=== PATIENT | female | born 1945 | race Caucasian/White ===

== ENCOUNTER → 2019-09-10 | Outpatient (CLI) | payer MEDICARE, OTHER ==
[2016-06-05 15:15] VITALS: BP 120/66
[~2019-09-10] MED LIST: ALBU2.5V8 IH; CALC1TAB PO; DULO30CA2 PO; FLUT16SP2 NS; FLUT1DIS3 IH; KRIL500C PO; LAMO100T5 PO; LAMO150T4 PO; LEVO1CAP PO; MIRT15TA PO; MULT-18 PO; POTA20TA12 PO; PROP1DRO6 OP; TRAM50TA PO; VALS1TAB14 PO
[2019-09-10 11:49] LABS: BASO # 0.1 x10^3/uL (0.0-0.2); BASO % 1 % (0-3); EOS # 0.9 x10^3/uL (0.0-0.7); EOS % 19 % (0-3); HEMATOCRIT 37.6 % (36.0-47.0); HEMOGLOBIN 12.8 g/dL (12.0-15.5); LYMPH # 0.8 x10^3/uL (1.0-4.8); LYMPH % 19 % (24-48); MEAN CORPUSCULAR HEMOGLOBIN 30 pg (25-35); MEAN CORPUSCULAR HGB CONC 34 g/dL (31-37); MEAN CORPUSCULAR VOLUME 87 fL (79-100); MONO # 0.3 x10^3/uL (0.0-1.1); MONO % 7 % (0-9); NEUT # 2.5 x10^3uL (1.8-7.7); NEUT % 54 % (31-73); PLATELET COUNT 349 x10^3/uL (140-400); RED BLOOD COUNT 4.32 x10^6/uL (3.50-5.40); RED CELL DISTRIBUTION WIDTH 13.4 % (11.5-14.5); WHITE BLOOD COUNT 4.6 x10^3/uL (4.0-11.0)
[2019-09-10 12:10] LABS: ALBUMIN 3.6 g/dL (3.4-5.0); CALCIUM 9.3 mg/dL (8.5-10.1); CREATININE 1.2 mg/dL (0.6-1.0); POTASSIUM 3.2 mmol/L (3.5-5.1); TOTAL BILIRUBIN 0.6 mg/dL (0.2-1.0); TOTAL PROTEIN 7.2 g/dL (6.4-8.2)
[2019-09-11 00:07] LABS: HEMOGLOBIN A1C 5.4 % (4.8-5.6)
== END | disposition home or self-care (01) ==
LOC: LAB 10:00
PROVIDERS: ATTEND Family Medicine
DX: I10 Essential (primary) hypertension (principal); R73.9 Hyperglycemia, unspecified; M81.0 Age-related osteoporosis without current pathological fracture
CPT/HCPCS: 36415; 80053; 82306; 83036; 85025

== ENCOUNTER 2020-09-29 21:05 | Emergency (ER) | payer MEDICARE, OTHER ==
[~2020-09-29] VITALS: Ht 162.6 cm; Wt 53.3 kg
[~2020-09-29 21:05] MED LIST changes: +MIRT-37 PO; -MIRT15TA PO
--- NOTE | 2020-09-29 21:27 | PHYS DOC ---
Past History Past Medical History: No Pertinent History, Asthma, Depression, Hypertension, Other Past Surgical History: Tonsillectomy, Other Alcohol Use: None Drug Use: None Adult General Chief Complaint Chief Complaint: HYPERTENSION HPI HPI This is a pleasant 75-year-old female with a history of hypertension, anxiety, asthma presented to the emergency department complaining of high blood pressure. Patient states that she has been diagnosed with hypertension for some time and has been on valsartan 80 mg p.o. daily. This has been increased to 80 mg twice a day. Patient states that she checked her blood pressure and it was 220/90. Her elevated blood pressure associated with temporal headache, dizziness and lightheadedness. She denies any visual changes, blurry vision, diplopia, chest pain, shortness of breath, leg swelling. She contacted her primary care provider who recommend patient take double dose of valsartan. Therefore this morning she had taken valsartan total 320 mg 4 tablets of 80 mg valsartan. Patient checked her blood pressure again this evening and it is high. Therefore she came to the ER for evaluation. Patient denies any other symptoms including abdominal pain, nausea, vomiting or bowel or bladder problem. She denies any sick contacts or recent travel. She denies any recent hospitalization or antibiotic usage. Review of Systems Review of Systems All other systems were reviewed and found to be within normal limits, except as documented in this note. Allergies Allergies Allergies Coded Allergies Type Severity Reaction Last Updated Verified Sulfa (Sulfonamide Antibiotics) Allergy Unknown 09/29/20 Yes acetaminophen Allergy Unknown 05/03/14 Yes codeine Allergy Unknown 05/03/14 Yes oxycodone Allergy Unknown 05/03/14 Yes Physical Exam Physical Exam Constitutional: Well developed, well nourished, no acute distress, non-toxic appearance. [] HENT: Normocephalic, atraumatic, bilateral external ears normal, oropharynx moist, no oral exudates, nose normal. [] Eyes: PERRLA, EOMI, conjunctiva normal, no discharge. [] Neck: Normal range of motion, no tenderness, supple, no stridor. [] Cardiovascular:Heart rate regular rhythm, no murmur [] Lungs & Thorax: Bilateral breath sounds clear to auscultation [] Abdomen: Bowel sounds normal, soft, no tenderness, no masses, no pulsatile masses. [] Skin: Warm, dry, no erythema, no rash. [] Back: No tenderness, no CVA tenderness. [] Extremities: No tenderness, no cyanosis, no clubbing, ROM intact, no edema. [] Neurologic: Alert and oriented X 3, normal motor function, normal sensory function, no focal deficits noted. [] Psychologic: Affect normal, judgement normal, mood normal. [] EKG EKG [] Radiology/Procedures Radiology/Procedures [] Heart Score C/O Chest Pain: N/A Risk Factors: Risk Factors: DM, Current or recent (<one month) smoker, HTN, HLP, family history of CAD, obesity. Risk Scores: Risk Factors: DM, Current or recent (<one month) smoker, HTN, HLP, family history of CAD, obesity. Course & Med Decision Making Course & Med Decision Making Patient was examined and evaluated immediately upon arrival to the ER. Patient was placed on monitor. Her vital signs stable other than elevated blood pres sure 224/84. This was repeated manually. About the same. No change. Patient was initiated with hydralazine 10 mg IV x1. This lowered her blood pressure to 170s. Patient was monitored closely. Blood work reviewed. No acute findings. No endorgan damage. She might be likely dehydrated. She was closely monitored for blood pressure in the ER. Her blood pressure elevated again toward the 180s to 200s systolic. She was given labetalol 20 mg IV x1. This lowered her blood pressure to 170s. It was felt the patient could take her home dose valsartan. She was given losartan 50 mg p.o. x1. This really improved her blood pressure to 150s. It was felt that patient is responding to her home dose with assistance of IV antihypertensives. She did not appear to be in toxic state. She is alert and oriented x4. She is conversing with her family members. Patient was going to be admitted to the hospital. She wants to go home. Her blood pressure is manageable with home medication. I advised patient to take th e losartan 80 mg 2 tablets by mouth in a.m. and valsartan 80 mg x 2 tablets by mouth in p.m. In addition to that she is to monitor her blood pressure closely and create a log sheet by checking blood pressure twice a day and take the blood pressure to her primary care provider. She was also given prescription for amlodipine 5 mg p.o. as needed for systolic blood pressure greater than 160. It was clear that patient will likely benefit from another agent if her current maximum dose of the losartan 160 mg twice a day is inadequate. She was discharged in satisfactory and stable condition with return precautions. Laboratory Tests Test 09/29/20 21:55 White Blood Count 6.9 x10^3/uL Red Blood Count 4.32 x10^6/uL Hemoglobin 12.4 g/dL Hematocrit 37.2 % Mean Corpuscular Volume 86 fL Mean Corpuscular Hemoglobin 29 pg Mean Corpuscular Hemoglobin Concent 33 g/dL Red Cell Distribution Width 13.6 % Platelet Count 343 x10^3/uL Neutrophils (%) (Auto) 52 % Lymphocytes (%) (Auto) 28 % Monocytes (%) (Auto) 7 % Eosinophils (%) (Auto) 12 % Basophils (%) (Auto) 1 % Neutrophils # (Auto) 3.6 x10^3uL Lymphocytes # (Auto) 1.9 x10^3/uL Monocytes # (Auto) 0.5 x10^3/uL Eosinophils # (Auto) 0.8 x10^3/uL Basophils # (Auto) 0.1 x10^3/uL Urine Collection Type Unknown Urine Color Yellow Urine Clarity Clear Urine pH 7.5 Urine Specific Salters 1.015 Urine Protein Neg Urine Glucose (UA) Neg mg/dL Urine Ketones (Stick) Neg mg/dL Urine Blood Neg Urine Nitrite Neg Urine Bilirubin Neg Urine Urobilinogen Dipstick 0.2 mg/dL Urine Leukocyte Esterase Neg Urine RBC 0 /HPF Urine WBC Rare /HPF Urine Squamous Epithelial Cells Occ /LPF Urine Bacteria 0 /HPF Sodium Level 144 mmol/L Potassium Level 3.6 mmol/L Chloride Level 105 mmol/L Carbon Dioxide Level 32 mmol/L Anion Gap 7 Blood Urea Nitrogen 20 mg/dL Creatinine 1.1 mg/dL Estimated GFR (Cockcroft-Gault) 48.6 BUN/Creatinine Ratio 18 Glucose Level 92 mg/dL Calcium Level 9.0 mg/dL Magnesium Level 2.5 mg/dL Total Bilirubin 0.5 mg/dL Aspartate Amino Transf (AST/SGOT) 25 U/L Alanine Aminotransferase (ALT/SGPT) 29 U/L Alkaline Phosphatase 93 U/L Troponin I Quantitative < 0.017 ng/mL C-Reactive Protein 4.1 mg/L RU-[id number]-Type Natriuretic Peptide 357 pg/mL Total Protein 7.1 g/dL Albumin 3.5 g/dL Albumin/Globulin Ratio 1.0 Current Medications Medications (Trade) Dose Ordered Sig/Teo Route PRN Reason Start Time Stop Time Status Last Admin Dose Admin Hydralazine HCl (Apresoline) 20 mg STK-MED ONCE .ROUTE 09/29/20 23:18 09/29/20 23:19 DC Hydralazine HCl (Apresoline) 10 mg 1X ONCE IV 09/29/20 23:30 09/29/20 23:31 DC 09/29/20 23:28 Labetalol HCl (Normodyne) 20 mg 1X ONCE IVP 09/30/20 00:30 09/30/20 00:32 DC 09/30/20 00:44 Losartan Potassium (Cozaar) 50 mg DAILY PO 09/30/20 01:03 09/30/20 03:03 DC 09/30/20 01:36 REASON: HTN PROCEDURE: CHEST PA & LATERAL XR CHEST 2V History: Reason: HTN / Spl. Instructions: / History: Comparison: May 28, 2016 Findings: Hyperinflation. No consolidation or pleural effusion. Normal heart size. No pneumothorax. Chronic upper thoracic compression fracture, unchanged. Impression: 1. No acute cardiopulmonary process. Electronically signed by: Dwayne Chiu DO (09/29/2020 10:14 PM) [facility] Disclaimer Tyson Disclaimer This electronic medical record was generated, in whole or in part, using a voice recognition dictation system. Departure Departure: Impression: Primary Impression: Hypertensive urgency Disposition: HOME / SELF CARE / HOMELESS Condition: IMPROVED Referrals: BRIAN AGUILAR MD (PCP) Patient Instructions: Hypertension, [id number] Additional Instructions: Please take valsartan 80 mg 2 tablets by mouth in a.m. and 80 mg 2 tablet by mouth in p.m. 9 AM and 3 PM respectively. Please check your blood pressure at 9 AM 3 PM next 3 days and keep the records. See your primary care provider with blood pressure logs. Your primary care provider may add another agent to your current blood pressure regimen. You may take amlodipine 5 mg by mouth only if your systolic blood pressure greater than 160 mmHg. Let your primary care know about new medication amlodipine as needed for systolic blood pressure greater than 160. Scripts Amlodipine Besylate (AMLODIPINE BESYLATE) 5 Mg Tablet 1 TAB PO DAILY for if systolic BP > 160 mmHg, #30 TAB 5 Refills Prov: DEEPTI ORTEGA MD 09/30/20 DEEPTI ORTEGA MD Sep 29, 2020 21:27
[2020-09-29 22:08] LABS: BASO # 0.1 x10^3/uL (0.0-0.2); BASO % 1 % (0-3); EOS # 0.8 x10^3/uL (0.0-0.7); EOS % 12 % (0-3); HEMATOCRIT 37.2 % (36.0-47.0); HEMOGLOBIN 12.4 g/dL (12.0-15.5); LYMPH # 1.9 x10^3/uL (1.0-4.8); LYMPH % 28 % (24-48); MEAN CORPUSCULAR HEMOGLOBIN 29 pg (25-35); MEAN CORPUSCULAR HGB CONC 33 g/dL (31-37); MEAN CORPUSCULAR VOLUME 86 fL (79-100); MONO # 0.5 x10^3/uL (0.0-1.1); MONO % 7 % (0-9); NEUT # 3.6 x10^3uL (1.8-7.7); NEUT % 52 % (31-73); PLATELET COUNT 343 x10^3/uL (140-400); RED BLOOD COUNT 4.32 x10^6/uL (3.50-5.40); RED CELL DISTRIBUTION WIDTH 13.6 % (11.5-14.5); WHITE BLOOD COUNT 6.9 x10^3/uL (4.0-11.0)
[2020-09-29 22:16] LABS: BACTERIA,URINE 0 /HPF (0-FEW); BILIRUBIN,URINE NEG (NEG); CLARITY,URINE CLEAR; COLOR,URINE YELLOW; GLUCOSE,URINE NEG (NEG); NITRITE,URINE NEG (NEG); RBC,URINE 0 /HPF (0-2); SQUAMOUS EPITHELIAL CELL,UR OCC /LPF; UROBILINOGEN,URINE 0.2 mg/dL (0.2 mg/dL); WBC,URINE RARE /HPF (0-4)
--- NOTE | 2020-09-29 22:16 | RAD ---
XR CHEST 2V History: Reason: HTN / Spl. Instructions: / History: Comparison: May 28, 2016 Findings: Hyperinflation. No consolidation or pleural effusion. Normal heart size. No pneumothorax. Chronic upp er thoracic compression fracture, unchanged. Impression: 1. No acute cardiopulmonary process. Electronically signed by: Dwayne Chiu DO (09/29/2020 10:14 PM) [facility] [place]
[2020-09-29 22:37] LABS: ALBUMIN 3.5 g/dL (3.4-5.0); CREATININE 1.1 mg/dL (0.6-1.0); GFR 48.6; MAGNESIUM 2.5 mg/dL (1.8-2.4); POTASSIUM 3.6 mmol/L (3.5-5.1); TOTAL BILIRUBIN 0.5 mg/dL (0.2-1.0); TOTAL PROTEIN 7.1 g/dL (6.4-8.2)
[2020-09-29] MEDS ORDERED: hydrALAZINE 20 MG/ML VIAL. ONE (23:18)
[2020-09-29] MEDS ORDERED: hydrALAZINE 20 MG/ML VIAL. IV ONE (23:30)
[2020-09-30] MEDS ORDERED: LABETALOL 20 MG/4 ML DISP.SYRIN. IVP ONE (00:30)
[2020-09-30] MEDS ORDERED: LOSARTAN 50 MG TABLET. PO SCH (01:03)
[2020-09-30 02:43] VITALS: BP 171/90
[2020-09-30] MEDS ORDERED: AMLO-186 PO (02:49)
== END 2020-09-30 03:00 | disposition home or self-care (01) ==
LOC: ER 21:05
DX: I16.0 Hypertensive urgency (principal); I10 Essential (primary) hypertension; F41.9 Anxiety disorder, unspecified; J45.909 Unspecified asthma, uncomplicated; Z88.6 Allergy status to analgesic agent; Z88.5 Allergy status to narcotic agent; Z88.2 Allergy status to sulfonamides
CPT/HCPCS: 36415; 71046; 80053; 81001; 83735; 83880; 84443; 84484; 85025; 86140; 96374; 96375; 99285; J0360; J3490

== ENCOUNTER → 2021-09-05 | Outpatient (CLI) | payer MEDICARE, OTHER ==
[~2021-09-05] MED LIST changes: +AMLO-186 PO
--- NOTE | 2021-09-05 14:59 | RAD ---
XR CHEST 2V History: Productive cough for several months. Comparison: Chest x-ray 09/29/2020, 05/28/2016. Technique: PA and lateral chest radiographs. Findings: The lungs are adequately inflated. There is right lower lobe consolidation. Multiple additional sites of nodularity versus consolidation including in the bilateral upper lobes. Extremity mediastinal josseline houette and pulmonary vasculature are within normal limits. Osseous structures and soft tissues are u nremarkable. Impression: 1. Findings which may represent multifocal infectious process however pulmonary nodules/masses and m alignancy cannot be excluded. Recommend noncontrast CT of the chest for further evaluation. A results notification message was left with Dr. Owens's emergency medical services coordinator line at 2:56 PM on 022 Electronically signed by: Ash Sun MD (09/05/2021 2:56 PM) [id number]
== END ==
LOC: RAD 10:42
PROVIDERS: ATTEND Family Medicine
DX: R05.9 Cough, unspecified (principal)
CPT/HCPCS: 71046